=== PATIENT | female | born 1975 | race African-American/Black ===

== ENCOUNTER 2016-10-23 10:49 | Emergency (ER) | payer MEDICAID ==
[~2016-10-23] VITALS: Ht 167.6 cm; Wt 91.2 kg
[~2016-10-23 10:49] MED LIST: ALEVE220 MG PO; CARAFATE1 G1 ORAL; CEPHALEXIN500 MG ORAL; CLINDAMYCIN HC150 MG ORAL; CLINDAMYCIN HC300 MG ORAL; CLOTRIMAZOLE VA21 GM VAGIN; DEBROX15 M1 BOTH EARS; DIFLUCAN150 MG PO; FLUCONAZOLE100 MG ORAL; IBUPROFEN600 MG ORAL; IBUPROFEN800 MG ORAL; IRON325 M2 PO; LORADAMED10 MG PO; MONISTAT 744 GM VG; NITROFURANTOIN100 M2 ORAL; NKM; NORCO 5-325 TA1 EACH ORAL; PHENAZOPYRIDIN100 MG ORAL; PHENAZOPYRIDIN200 MG ORAL; PREDNISONE20 MG ORAL; VALTREX1000 MG PO; [UNRECOGNIZED DRUG - OTHER] TP
[2016-10-23] MEDS ORDERED: CLINDAMYCIN HC300 MG ORAL (11:22)
[2016-10-23 11:48] VITALS: BP 145/97
--- NOTE | 2016-10-24 13:47 | Emergency Room Report ---
History of Present Illness General Chief Complaint: Earache Source: Patient Present Illness HPI 41-year-old female presents to ED for evaluation. States the last 10 days she' s had fullness in her left ear with pain. Pain is an 8/10, dull, nonradiating. Denies fevers or chills. Denies sore throat or cough. Denies sick contacts or recent travel. No aggravating relieving factors. Denies any other associated symptoms Allergies: Coded Allergies: METRONIDAZOLE (Verified Allergy, Severe, rash, 04/20/14) PENICILLINS (Verified Allergy, Severe, rash, 04/20/14) SULFA (SULFONAMIDE ANTIBIOTICS) (Verified Allergy, Severe, rash, 04/20/14) TETRACYCLINES (Verified Allergy, Severe, rash, 04/20/14) CHOCOLATE FLAVOR (Verified Allergy, Intermediate, 12/18/15) PEACH (Verified Allergy, Intermediate, 12/18/15) SULFAMETHOXAZOLE (Verified Allergy, Intermediate, 12/18/15) Shrimp (Verified Allergy, Intermediate, 12/18/15) TOMATO (Verified Allergy, Intermediate, 12/18/15) TRIMETHOPRIM (Verified Allergy, Intermediate, 12/18/15) YEAST (Verified Allergy, Intermediate, 12/18/15) DOXYCYCLINE (Unverified Allergy, Unknown, 04/20/14) Patient History Past Medical History: DM Last Menstrual Period: last month Now: No Reviewed Nursing Documentation: PMH: Agreed, PSxH: Agreed Nursing Documentation-PMH Past Medical History: No History, Except For Hx Hypertension: No Hx Pacemaker: No Hx Asthma: No Hx COPD: No Hx Diabetes: Yes Hx Cancer: No Hx Gastrointestinal Problems: Yes Hx Dialysis: No Hx Neurological Problems: Yes - degenerative disc in spine, arms, legs Hx Cerebrovascular Accident: No Hx Transient Ischemic Attacks: No Hx Dementia: No Hx Alzheimer's Disease: No Hx Parkinson's Disease: No Hx Meningitis: No Hx Encephalitis: No Hx Seizures: No Hx Epilepsy: No Hx Multiple Sclerosis: No Hx Cerebral Palsy: No Hx Amyotrophic Lat Sclerosis: No Hx Guillian-[place] Syndrome: No Hx Paralysis: No Hx Peripheral Neuropathy: Yes - arms/legs Hx Spinal Cord Injury: No Hx Head Trauma: No Hx Traumatic Brain Injury: No Hx Memory Loss: No Hx Concentration Difficulty: Yes Hx Speech Problem: No Hx Tremors: No Hx Vertigo: Yes Hx Dizziness: Yes Hx Syncope: No Hx Headaches: No Hx Aphasia: No Hx Dysphasia: No Hx Numbness: No Hx Weakness: No Hx Fatigue: No Hx Neurologic Surgery: No Hx Brain Shunt: No Review of Systems All Other Systems: negative except mentioned in HPI Physical Exam Vital Signs Date Time Temp Pulse Resp B/P Pulse Ox O2 Delivery O2 Flow Rate FiO2 10/23/16 11:01 98.1 67 18 123/77 99 Room Air Sp02 EP Interpretation: reviewed, normal General Appearance: no apparent distress, alert, GCS 15, non-toxic Head: normocephalic Eyes: bilateral eye PERRL, bilateral eye normal inspection ENT: other - L TM poor light reflex. fluid noted behind L TM Neck: full range of motion, supple/symm/no masses Respiratory: normal inspection Cardiovascular #1: normal inspection Gastrointestinal: normal inspection Rectal: deferred Genitourinary: no CVA tenderness Musculoskeletal: normal inspection Neurologic: alert, oriented x3, responsive, motor strength/tone normal, sensory intact, speech normal Psychiatric: normal inspection Skin: normal inspection Lymphatic: normal inspection Medical Decision Making Diagnostic Impression: Primary Impression: Otitis media Qualified Codes: H66.92 - Otitis media, unspecified, left ear ER Course Hospital Course 41-year-old F presents to ED with pain/fullness L ear. no fever. Differential diagnoses include: TM perforation, otitis externa, otitis media Clinical course Patient placed on stretcher. After initial history, physical exam reveals a female in no acute distress. L TM poor light reflex, fluid behind L TM. Remainder of physical exam unremarkable. clinical findings consistent with otitis media Diagnosis - otitis media Stable and discharged to home with Rx Clindamycin. Followup with PMD. Return to ED if symptoms recur or worsen Last Vital Signs Date Time Temp Pulse Resp B/P Pulse Ox O2 Delivery O2 Flow Rate FiO2 10/23/16 11:48 98.1 79 17 145/97 100 Room Air Status: improved Disposition: HOME, SELF-CARE Condition: Stable Scripts Clindamycin Hcl (CLINDAMYCIN HCL) 300 Mg Capsule 300 MG ORAL THREE TIMES A DAY, #21 CAP Prov: ALESSANDRA XIAO M.D. 10/23/16 Referrals: ELSIE RASCON,REFERRING Departure Forms: Return to School Return to School On: Oct 25, 2016 School Release Restrictions: None Patient Instructions: Otitis Media, Adult ALESSANDRA XIAO M.D. Oct 24, 2016 13:47
== END 2016-10-23 11:51 | disposition home or self-care (01) ==
LOC: EMR 11:30
DX: H66.92 Otitis media, unspecified, left ear (principal); Z88.0 Allergy status to penicillin; Z88.2 Allergy status to sulfonamides; Z88.8 Allergy status to other drugs, medicaments and biological substances; Z91.018 Allergy to other foods; E11.40 Type 2 diabetes mellitus with diabetic neuropathy, unspecified
CPT/HCPCS: 99283

== ENCOUNTER 2016-12-12 17:38 | Emergency (ER) | payer MEDICAID ==
[~2016-12-12] VITALS: Ht 167.6 cm; Wt 91.2 kg
--- NOTE | 2016-12-12 18:08 | Emergency Room Report ---
History of Present Illness General Chief Complaint: Female Urogenital Problems Source: Patient Present Illness HPI 41YOF with 1-2 weeks dysuria, radiating to right flank Denies nausea/vomiting, diarrhea, abd pain States today the pain also radiates to right upper chest and throat - feels like "something is stuck in there" after swallowing. Denies smoking, history of asthma. Didnt take any OTC meds. 2016 sono shows multiple uterine fibroids Allergies: Coded Allergies: METRONIDAZOLE (Verified Allergy, Severe, rash, 04/20/14) PENICILLINS (Verified Allergy, Severe, rash, 04/20/14) SULFA (SULFONAMIDE ANTIBIOTICS) (Verified Allergy, Severe, rash, 04/20/14) TETRACYCLINES (Verified Allergy, Severe, rash, 04/20/14) CHOCOLATE FLAVOR (Verified Allergy, Intermediate, 12/18/15) PEACH (Verified Allergy, Intermediate, 12/18/15) SULFAMETHOXAZOLE (Verified Allergy, Intermediate, 12/18/15) Shrimp (Verified Allergy, Intermediate, 12/18/15) TOMATO (Verified Allergy, Intermediate, 12/18/15) TRIMETHOPRIM (Verified Allergy, Intermediate, 12/18/15) YEAST (Verified Allergy, Intermediate, 12/18/15) DOXYCYCLINE (Unverified Allergy, Unknown, 04/20/14) Patient History Past Medical History: old chart reviewed Past Surgical History: none Pertinent Family History: none Social History: Denies: alcohol use, drug use, smoking Last Menstrual Period: november Now: No : 2 Para: 2 Immunizations: UTD Reviewed Nursing Documentation: PMH: Agreed, PSxH: Agreed Nursing Documentation-PMH Past Medical History: No History, Except For Hx Hypertension: No Hx Pacemaker: No Hx Asthma: No Hx COPD: No Hx Diabetes: No Hx Cancer: No Hx Gastrointestinal Problems: Yes Hx Dialysis: No Hx Neurological Problems: Yes - degenerative disc in spine, arms, legs Hx Cerebrovascular Accident: No Hx Transient Ischemic Attacks: No Hx Dementia: No Hx Alzheimer's Disease: No Hx Parkinson's Disease: No Hx Meningitis: No Hx Encephalitis: No Hx Seizures: No Hx Epilepsy: No Hx Multiple Sclerosis: No Hx Cerebral Palsy: No Hx Amyotrophic Lat Sclerosis: No Hx Guillian-[place] Syndrome: No Hx Paralysis: No Hx Peripheral Neuropathy: Yes - arms/legs Hx Spinal Cord Injury: No Hx Head Trauma: No Hx Traumatic Brain Injury: No Hx Memory Loss: No Hx Concentration Difficulty: Yes Hx Speech Problem: No Hx Tremors: No Hx Vertigo: Yes Hx Dizziness: Yes Hx Syncope: No Hx Headaches: No Hx Aphasia: No Hx Dysphasia: No Hx Numbness: No Hx Weakness: No Hx Fatigue: No Hx Neurologic Surgery: No Hx Brain Shunt: No Review of Systems All Other Systems: negative except mentioned in HPI Physical Exam Vital Signs Date Time Temp Pulse Resp B/P Pulse Ox O2 Delivery O2 Flow Rate FiO2 12/12/16 17:55 98.4 98 18 114/76 100 Room Air Sp02 EP Interpretation: reviewed, normal General Appearance: normal inspection, well appearing, no apparent distress, alert, GCS 15, non-toxic Head: normocephalic, atraumatic Eyes: bilateral eye EOMI, bilateral eye PERRL ENT: normal ENT inspection, hearing grossly normal, normal voice Neck: normal inspection, full range of motion, supple, no bony tend Respiratory: normal inspection, lungs clear, normal breath sounds, no respiratory distress, no retraction, no wheezing Cardiovascular #1: regular rate, rhythm, no edema Gastrointestinal: normal inspection, normal bowel sounds, non tender, soft, no guarding, no hernia Genitourinary: no CVA tenderness Musculoskeletal: normal inspection, back normal, normal range of motion, Merry' s Sign negative Neurologic: normal inspection, alert, oriented x3, responsive, 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 Afebrile. - Not - UA: equivocal - Will give Macrobid given symptoms, HPI Chest pain - Reproducible - Worse with inspiration - Lungs CTAB - No rash - Low suspicion for ACS/PE given 1-2 weeks duration, normal vitals, not hypoxic , reproducible. - CXR negative for PTX - rX ibuprofen for likely MSK pain Chest X-Ray Diagnostic Results Chest X-Ray Diagnostic Results : Chest X-Ray Ordered: Yes # of Views/Limited/Complete: 1 View Indication: Chest Pain EP Interpretation: Yes Interpretation: no consolidation, no effusion, no pneumothorax, no acute cardiopulmonary disease Impression: No acute disease Interpreting ER Provider: Electronically signed by Dr Crawford Last Vital Signs Date Time Temp Pulse Resp B/P Pulse Ox O2 Delivery O2 Flow Rate FiO2 12/12/16 17:55 98.4 98 18 114/76 100 Room Air Status: improved Disposition: HOME, SELF-CARE Scripts Fluconazole (FLUCONAZOLE) 150 Mg Tablet 150 MG ORAL ONCE for 1 Day, #1 TAB Prov: ISAÍAS CRAWFORD M.D. 12/12/16 Ibuprofen* (MOTRIN*) 600 Mg Tablet 600 MG ORAL THREE TIMES A DAY for For Pain for 7 Days, #30 TAB 0 Refills Prov: ISAÍAS CRAWFORD M.D. 12/12/16 Nitrofurantoin Monohyd/M-Cryst* (MACROBID 100 MG*) 100 Mg Capsule 100 MG ORAL EVERY 12 HOURS for 7 Days, #14 CAP Prov: ISAÍAS CRAWFORD M.D. 12/12/16 ISAÍAS CRAWFORD M.D. Dec 12, 2016 18:08
[2016-12-12 18:47] LABS: APPEARANCE,URINE CLEAR; KETONES,URINE 1+ (NEGATIVE); LEUKOCYTE ESTERASE ,URINE 1+ (NEGATIVE); NITRITE,URINE NEGATIVE (NEGATIVE); PH,URINE 5 (4.5-8.0); PROTEIN,URINE NEGATIVE (NEGATIVE); UROBILINOGEN,URINE 1 MG/DL (0.0-1.0)
[2016-12-12 18:51] LABS: BACTERIA,URINE OCCASIONAL /HPF; RBC,URINE 0-2 /HPF (0 - 2); SQUAMOUS EPITHELIAL CELL,UR OCCASIONAL /LPF (NONE/OCC); WBC,URINE 0-2 /HPF (0 - 2)
[2016-12-12 18:52] LABS: MUCUS,URINE MANY /LPF (NONE/OCC)
[2016-12-12] MEDS ORDERED: Ketorolac 60mg Inj IM ONE (19:00)
[2016-12-12 19:05] VITALS: BP 114/76
[2016-12-12] MEDS ORDERED: IBUPROFEN600 MG ORAL (19:12)
[2016-12-12] MEDS ORDERED: NITROFURANTOIN100 M2 ORAL (19:12)
[2016-12-12] MEDS ORDERED: FLUCONAZOLE150 MG ORAL (19:21)
[2016-12-12 19:25] VITALS: BP 114/76
--- NOTE | 2016-12-13 10:31 | Diagnostic Imaging Report ---
Indication: Chest pain Technique: One view of the chest Comparison: 07/17/2015 Findings: Lungs and pleural spaces are clear. Heart size is normal. No significant change Impression: No acute process
== END 2016-12-12 19:25 | disposition home or self-care (01) ==
LOC: EMR 18:15
DX: R30.0 Dysuria (principal); R07.9 Chest pain, unspecified; Z88.2 Allergy status to sulfonamides; Z88.6 Allergy status to analgesic agent; Z88.0 Allergy status to penicillin; Z91.018 Allergy to other foods; Z91.013 Allergy to seafood
CPT/HCPCS: 71010; 80300; 81003; 81025; 96372; 99284